=== PATIENT | female | born 1990 | race Two or more races ===

== ENCOUNTER 2024-07-31 09:58 | Day surgery (SDC) | payer BC, SELFPAY ==
[2024-07-31] VITALS (10 sets, daily range): BP systolic 115–151; BP diastolic 67–90; PULSE 67–88; RESP 13–19; TEMP 36.6–37.2; O2SAT 97–100; BMI 35.1
--- NOTE | 2024-07-31 10:36 | PD.EDRME ---
Rapid Medical Screening Exam [facility] Arrival date/time: 07/31/24 09:58 33-year-old female with no known medical history presents to the emergency room with a chief complaint of an incomplete of 6 weeks gestation. Patient was sent here by Dr Garcia for admission for a D&C as soon as an OR room is available and lab work is completed. I have greeted and performed a focused initial assessment of this patient. A comprehensive ED assessment and evaluation of the patient, analysis of all test results, and completion of the medical decision making process will be conducted by additional ED providers. Chief Complaint: Vaginal Bleeding Vital signs: Vital Signs Temperature 99.0 F 07/31/24 10:26 Pulse Rate 79 07/31/24 10:26 Respiratory Rate 16 07/31/24 10:26 Blood Pressure 135/85 H 07/31/24 10:26 Pulse Oximetry (%) 98 07/31/24 10:26 Oxygen Delivery Method Room Air 07/31/24 10:26 Vital signs reviewed by provider: Yes
[2024-07-31 11:03] LABS: Basophils % (Auto) 0 % (0-2.5); Eosinophils # (Auto) 0.1 Thou/mm3 (0.0-0.5); Eosinophils % (Auto) 1 % (0-10); Hematocrit 40.9 % (36.0-46.0); Hemoglobin 13.5 g/dL (12.0-16.0); Immature Granulocytes % (Auto) 0 % (0-0); Immature Granulocytes Auto 0.01 Thou/mm3 (0.00-0.00); Lymphocytes # (Auto) 1.4 Thou/mm3 (1.0-4.8); Lymphocytes % (Auto) 21 % (10-50); Mean Corpuscular Hemoglobin 27.9 pg (25.0-35.0); Mean Corpuscular Volume 85 fL (80-100); Monocytes # (Auto) 0.5 Thou/mm3 (0.0-0.8); Monocytes % (Auto) 7 % (0-12); Neutrophils # (Auto) 4.9 Thou/mm3 (1.8-7.7); Neutrophils % (Auto) 71 % (37-80); Nucleated Red Blood Cell % 0 /100 WBC (0); Platelet Count 209 Thou/mm3 (140-440); RDW Standard Deviation 40.1 fL (36.4-46.3); Red Blood Count 4.84 Miln/mm3 (4.00-5.20); White Blood Count 6.9 Thou/mm3 (3.6-11.0)
[2024-07-31 11:22] LABS: INR 1.1 (0.9-1.3); Partial Thromboplastin Time 26.8 Seconds (22.0-36.0); Prothrombin Time 11.7 Seconds (9.0-12.2)
--- NOTE | 2024-07-31 11:22 | ESHP_ITS ---
RE: LILLIAN MCCONNELL : 1990 DATE OF ADMISSION: 07/31/2024 With nonviable , who presents with vaginal bleeding. Her workup and evaluation confirms an incomplete . Her quantitative hCG levels are declining. Her progesterone is less than 5. The ultrasound shows a gestational sac in an intrauterine cavity and she has products of conception at the endocervical os with a dilated cervix and active bleeding. She also developed a rash after taking labetalol for the first time for chronic hypertension. The rash is generalized over her upper extremities and chest and neck. She denies any chest pain, palpitations, shortness of breath or lower extremity pain. She denies any headache, change in vision or right upper quadrant pain. She denies any stiff neck. She denies any diarrhea or constipation. She denies any flank pain. MEDICATIONS: 1. Labetalol 100 mg 1 p.o. b.i.d. 2. vitamin 1 p.o. daily. OBSTETRIC HISTORY: In 2017, delivery and 2020, delivery. PAST SURGICAL HISTORY: Diagnostic laparoscopy in 2015, no endometriosis. delivery 2017 and 2020 and diagnostic laparoscopy in 2015. PAST MEDICAL HISTORY: Chronic hypertension, advanced maternal age. FAMILY HISTORY: Denies. SOCIAL HISTORY: She denies any alcohol, drug use or smoking. PHYSICAL EXAMINATION: VITAL SIGNS: Blood pressure 138/86, heart rate 83, respirations 18, temperature is 98.7, weight 205 pounds. HEENT: Oropharynx and sclerae clear. LUNGS: Clear to auscultation bilaterally. HEART: Regular rate and rhythm. ABDOMEN: Nontender. PELVIC: Cervix dilated with products of conception at the os. EXTREMITIES: Nontender. SKIN: No gross rash or lesion. NEUROLOGIC: No focal deficit. ASSESSMENT AND PLAN: Incomplete at 6 weeks' gestation. PLAN: Suction dilatation and curettage. Informed consent was obtained. The patient was made aware of the risks, complications, alternatives, benefits of the proposed procedure and she agrees. She is aware of the risk of injury to uterus, bowel or bladder, bleeding leading to blood transfusion, pelvic infection, hematoma abscess, laparotomy to repair injury to organs, possibility that the D and C does not remove all products of conception and a repeat D and C may be necessary. I discussed with the patient anesthesia risks and complications including the risk of blood clots in the deep veins of the legs and lungs. This was all explained in layman's terms. She verbalized understanding. DT: 08:48:31 TT: 09:09:00 Ref: [id number] - TID: [id number]
[2024-07-31 11:23] LABS: Alanine Aminotransferase 14 U/L (10-49); Albumin, Serum 4.9 gm/dL (3.5-5.0); Albumin/Globulin Ratio 1.6 (1.2-2.2); Alkaline Phosphatase 78 U/L (46-116); Anion Gap 9 (7-16); Aspartate Amino Transferase 17 U/L (0-34); BUN/Creatinine Ratio 10 Ratio (12-20); Bilirubin,Total 0.5 mg/dL (0.3-1.2); Blood Urea Nitrogen 6 mg/dL (9-23); Calcium 9.8 mg/dL (8.3-10.6); Calcium (Corrected) 9.8 mg/dL (8.5-10.1); Carbon Dioxide 26.2 mMol/L (20.0-31.0); Chloride 104 mMol/L (98-107); Creatinine (Component) 0.6 mg/dL (0.6-1.3); Estimated Creatinine Clearance 145.8 mL/min (>60); Glucose 91 mg/dL (74-106); Osmolality,Calculated 275 (275-295); Potassium 4.1 mMol/L (3.4-5.1); Sodium 139 mMol/L (136-145); Total Protein 7.9 gm/dL (5.7-8.2); eGFR > 60 See Note
--- NOTE | 2024-07-31 11:45 | PC.NURSE ---
PT STATES SHE LAST ATE YESTERDAY AT 1500 AND LAST DRANK SOMETHING LAST NIGHT. NPO TODAY
--- NOTE | 2024-07-31 12:02 | PC.NURSE ---
PT WAITING IN ER LOBBY. [facility]LEX CARE READY FOR PT. STATES THEY WILL COME AND GET PT AT THIS TIME.
--- NOTE | 2024-07-31 13:35 | SUR.PHASEI ---
pt received from OR in recovery bay 4. pt asleep but responds to voice, breathing unlabored on 8l oxymask. v/s stable. pt dressing periapad cdi. report received from Harry ESTRELLA.
[2024-07-31] MEDS: fentaNYL CIT INJ 50 mCg/ML AMP 2ML 25 MCG IVP (14:30)
--- NOTE | 2024-07-31 14:30 | SUR.PHASEII ---
pt able to tolerate oral fluids without difficultly swallowing or nausea/vomiting.
--- NOTE | 2024-07-31 15:05 | SUR.PHASEII ---
pt awake and alert, breathing unlabored on room air. v/s stable. pt dressing peripad scant blood noted. pt able to ambulate to wheelchair with steady gait. d/c instructions given with Gold in room, all questions answered. pt d/c via wheelchair with all belongings.
--- NOTE | 2024-08-01 08:18 | ESOP_ITS ---
RE: LILLIAN MCCONNELL : 1990 DATE OF OPERATION: 07/31/2024 PREOPERATIVE DIAGNOSIS: Incomplete at 6 weeks gestation. POSTOPERATIVE DIAGNOSIS: Incomplete at 6 weeks gestation. PROCEDURE PERFORMED: Suction dilatation and curettage. SURGEON: Adrien Garcia DO HVAC MANAGER: None. ANESTHESIA: General. ANESTHESIOLOGIST: Dr. Gutierrez ESTIMATED BLOOD LOSS: 75 mL. COMPLICATIONS: None. COUNTS: Correct. PATHOLOGY: Products of conception. FINDINGS: Cervix dilated 1 cm. Products of conception of the os. Moderate amount of products of conception obtained. Uterus sounded to 9 cm anteverted. DESCRIPTION OF PROCEDURE: After proper informed consent was obtained and the patient was made aware of the risks, complications, alternatives, benefits of the proposed procedure, she was taken to the operating room where she underwent induction of general anesthesia. She was placed in the dorsal lithotomy position. She was prepped and draped in the usual sterile fashion. A timeout was performed. The speculum was placed in the vagina. A single-tooth tenaculum was used to grasp the anterior lip of the cervix. The uterus sounds to 9 cm and anteverted. The cervix was dilated to accommodate the 10 mm suction curette and a curette was then utilized to curette the uterine cavity in all four quadrants conception were obtained. All arteries were removed from the vagina. She was referred from general anesthesia in the supine position and transferred to the recovery room in stable condition. She tolerated the procedure well. Counts were correct. Discharge instructions were give preoperatively. DT: 13:41:12 TT: 17:35:00 Ref: [id number] - TID: [id number]
== END 2024-07-31 13:42 | disposition home or self-care (01) ==
LOC: SERX 11:46 → SERHOLD 12:31 → S2EX 08-01 06:45
PROVIDERS: Nurse Practitioner Family; Emergency Provider Emergency Medicine; PCP Family Medicine; Referring Provider Specialist; Visit Provider Specialist
PROC: (CPT 58120; principal; 2024-07-31 14:30)
DX: O03.4 Incomplete spontaneous abortion without complication (principal); O16.1 Unspecified maternal hypertension, first trimester; Z3A.01 Less than 8 weeks gestation of pregnancy
CPT/HCPCS: 59812; 36415; 80053; 85025; 85610; 85730; 86850; 86900; 86901; 86923; 99285; A4217; G0378; J0131; J0690; J1100; J2210; J2371; J2405; J2590; J2704; J2765; J3010

== ENCOUNTER → 2024-12-25 | Outpatient (CLI) | payer OTHER, SELFPAY ==
[2024-12-25 10:39] LABS: Basophils # (Auto) 0.0 Thou/mm3 (0.0-0.2); Basophils % (Auto) 0 % (0-2.5); Eosinophils # (Auto) 0.1 Thou/mm3 (0.0-0.5); Eosinophils % (Auto) 1 % (0-10); Hematocrit 41.9 % (36.0-46.0); Hemoglobin 14.3 g/dL (12.0-16.0); Immature Granulocytes Auto 0.01 Thou/mm3 (0.00-0.00); Lymphocytes # (Auto) 2.3 Thou/mm3 (1.0-4.8); Lymphocytes % (Auto) 39 % (10-50); Mean Corpuscular HGB Conc 34.1 g/dl (31.0-37.0); Mean Corpuscular Hemoglobin 28.8 pg (25.0-35.0); Mean Corpuscular Volume 84 fL (80-100); Monocytes # (Auto) 0.5 Thou/mm3 (0.0-0.8); Monocytes % (Auto) 8 % (0-12); Neutrophils # (Auto) 3.0 Thou/mm3 (1.8-7.7); Neutrophils % (Auto) 51 % (37-80); Nucleated Red Blood Cell # 0.00 Thou/mm3 (0.00-0.00); Nucleated Red Blood Cell % 0 /100 WBC (0); Platelet Count 200 Thou/mm3 (140-440); RDW Standard Deviation 38.7 fL (36.4-46.3); Red Blood Count 4.97 Miln/mm3 (4.00-5.20); White Blood Count 5.9 Thou/mm3 (3.6-11.0)
[2024-12-25 10:44] LABS: Collection Type, Urine Clean Catch
[2024-12-25 10:54] LABS: Alanine Aminotransferase 13 U/L (10-49); Albumin, Serum 4.7 gm/dL (3.5-5.0); Albumin/Globulin Ratio 1.5 (1.2-2.2); Alkaline Phosphatase 74 U/L (46-116); Anion Gap 7 (7-16); Aspartate Amino Transferase 15 U/L (0-34); BUN/Creatinine Ratio 10 Ratio (12-20); Bilirubin,Total 0.6 mg/dL (0.3-1.2); Blood Urea Nitrogen 7 mg/dL (9-23); Calcium 9.7 mg/dL (8.3-10.6); Calcium (Corrected) 9.7 mg/dL (8.5-10.1); Carbon Dioxide 27.2 mMol/L (20.0-31.0); Cardiac Risk Estimate 4.4 RATIO (3.7-5.6); Chloride 106 mMol/L (98-107); Cholesterol 194 mg/dL (132-200); Creatinine (Component) 0.7 mg/dL (0.6-1.3); Globulin 3.1 gm/dL (2.3-3.5); Glucose 94 mg/dL (74-106); HDL Cholesterol 44 mg/dL (40-60); LDL Cholesterol,Calculated 113 mg/dL (0-130); Osmolality,Calculated 277 (275-295); Potassium 4.6 mMol/L (3.4-5.1); Sodium 140 mMol/L (136-145); Thyroid Stimulating Hormone 1.19 uIU/mL (0.55-4.78); Total Protein 7.8 gm/dL (5.7-8.2); Triglycerides 187 mg/dL (30-150); eGFR > 60 See Note
[2024-12-25 11:35] LABS: Bilirubin,Urine Negative (Negative); Blood,Urine Trace (Negative); Color,Urine Lt-Yellow (Lt Yel-Yel); Glucose, Urine Negative (Negative); Hyaline Casts,Urine < 1 /hpf (0-1); Ketones,Urine Negative (Negative); Leukocyte Esterase,Urine Positive (Negative); Nitrite,Urine Negative (Negative); PH,Urine 8.0 (5.0-7.0); Protein,Urine Trace (Neg - Trace); RBC,Urine 3 /hpf (0-3); Specific Gravity,Urine 1.016 (1.001-1.035); Squamous Epithelial Cell,Urine 37 /hpf (0-5); Urobilinogen,Urine Negative mg/dL (0.0-1.0); WBC,Urine 7 /hpf (0-5)
[2024-12-25 11:49] LABS: Clarity,Urine Hazy (Clear/Hazy)
== END | disposition home or self-care (01) ==
LOC: COPL 08:53
PROVIDERS: PCP Family Medicine; Referring Provider Family Medicine; Visit Provider Family Medicine
DX: I10 Essential (primary) hypertension (principal)
CPT/HCPCS: 36415; 80053; 80061; 81001; 84443; 85025

== ENCOUNTER → 2025-01-08 | Outpatient (CLI) | payer OTHER, SELFPAY ==
[2025-01-08 14:39] LABS: Collection Type, Urine Catheter
[2025-01-08 16:47] LABS: Bacteria,Urine Rare; Bilirubin,Urine Negative (Negative); Blood,Urine Negative (Negative); Clarity,Urine Clear (Clear/Hazy); Color,Urine Yellow (Lt Yel-Yel); Glucose, Urine Negative (Negative); Ketones,Urine Negative (Negative); Leukocyte Esterase,Urine Negative (Negative); Nitrite,Urine Negative (Negative); PH,Urine 7.5 (5.0-7.0); Protein,Urine Negative (Neg - Trace); RBC,Urine 1 /hpf (0-3); Specific Gravity,Urine 1.013 (1.001-1.035); Squamous Epithelial Cell,Urine 8 /hpf (0-5); Urobilinogen,Urine Negative mg/dL (0.0-1.0); WBC,Urine 1 /hpf (0-5)
== END | disposition home or self-care (01) ==
LOC: SLDO 14:35
PROVIDERS: PCP Family Medicine; Referring Provider Family Medicine; Visit Provider Family Medicine
DX: N30.00 Acute cystitis without hematuria (principal)
CPT/HCPCS: 81001; 87086